=== PATIENT | female | born 1990 | race Caucasian/White ===

== ENCOUNTER → 2018-06-17 | Outpatient (REF) | payer OTHER | LOC: M LAB REF 14:58 | PROVIDERS: ATTEND Nurse Practitioner Adult Health | DX: Z12.4 Encounter for screening for malignant neoplasm of cervix (principal) ==

== ENCOUNTER → 2018-11-11 | Outpatient (REF) | payer OTHER ==
[2018-11-14 14:29] LABS: HPV HYBRID CAPTURE II Negative (Negative)
== END ==
LOC: M LAB LCGH 11:47
PROVIDERS: ATTEND Nurse Practitioner Adult Health
DX: Z12.4 Encounter for screening for malignant neoplasm of cervix (principal)

== ENCOUNTER → 2019-04-03 | Outpatient (REF) | LOC: M LAB LCGH 10:55 | PROVIDERS: ATTEND Physician Assistant | DX: D22.39 Melanocytic nevi of other parts of face (principal) ==

== ENCOUNTER → 2022-02-17 | Outpatient (CLI) | payer BC, OTHER | LOC: M RAD 15:02 | DX: M79.661 Pain in right lower leg (principal) ==

== ENCOUNTER → 2024-06-10 | Outpatient (REF) | payer BC, OTHER | LOC: M SFHCDERM 17:31 | PROVIDERS: ATTEND Physician Assistant | DX: R21 Rash and other nonspecific skin eruption (principal) ==